=== PATIENT | female | born 1955 ===

== ENCOUNTER 2018-11-14 14:54 | Emergency (ER) | payer OTHER, BC ==
[2018-11-14 14:59] VITALS: BP 131/68; PULSE 78; RESP 18; TEMP 98.5; O2SAT 99
--- NOTE | 2018-11-14 15:10 | ED PDOC ---
HPI: Allergic Reaction Time Seen by Provider: 11/14/18 15:03 Chief Complaint (Nursing): Allergic Reaction Chief Complaint (Provider): Allergic Reaction History Per: Patient History/Exam Limitations: no limitations Onset/Duration Of Symptoms: Sudden Onset Current Symptoms Are (Timing): Still Present Context: Food Possible Cause: Food Associated Symptoms: Swelling, Itching, Redness Additional Complaint(s): 63 year old female with no significant medical history presents to the ED for evaluation of a facial swelling, itching and redness. Patient states just prior to arrival, she was eating strawberries with white and dark chocolate, which she has eaten in the past without problem, when she suddenly developed symptoms. She experienced sudden onset of right sided facial swelling with pruritis and redness to the area. Denies throat pain, fever, chills, numbness, tingling, and weakness. PMD: Dr. Hernando Ma Past Medical History Reviewed: Historical Data, Nursing Documentation, Vital Signs Vital Signs: Last Vital Signs Temp 98.5 F 11/14/18 14:57 Pulse 78 11/14/18 14:57 Resp 18 11/14/18 14:57 BP 131/68 11/14/18 14:57 Pulse Ox 99 11/14/18 14:57 Primary Care Provider: Hernando Hu - Medical History PMH: No Chronic Diseases - Surgical History Surgical History: No Surg Hx - Family History Family History: States: Unknown Family Hx - Social History Alcohol: None Drugs: Denies - Home Medications Home Medications: Ambulatory Orders Medication Instructions Recorded DiphenhydrAMINE [Benadryl] 50 mg PO Q6 PRN #10 cap 11/14/18 predniSONE [Prednisone] 40 mg PO DAILY #8 tab 11/14/18 - Allergies Allergies/Adverse Reactions: Allergies Allergy/AdvReac Type Severity Reaction Status Date / Time No Known Allergies Allergy Verified 11/14/18 14:56 Review of Systems ROS Statement: Except As Marked, All Systems Reviewed And Found Negative Constitutional: Negative for: Fever, Chills ENT: Negative for: Throat Pain Skin: Positive for: Other (right facial swelling with pruritis and redness) Neurological: Positive for: Other (tingling). Negative for: Weakness, Numbness Physical Exam - Reviewed Nursing Documentation Reviewed: Yes Vital Signs Reviewed: Yes - Physical Exam Appears: Positive for: No Acute Distress Head Exam: Positive for: ATRAUMATIC, NORMAL INSPECTION, NORMOCEPHALIC Skin: Positive for: Warm (minimal swelling to the right cheek with faint erythema; positive blanching; no break in skin integrity), Dry. Negative for: Normal Color Eye Exam: Positive for: EOMI, Normal appearance, PERRL ENT: Positive for: Normal ENT Inspection, TM Is/Are (non-bulging, non- erythematous). Negative for: Pharyngeal Erythema, Tonsillar Exudate, Tonsillar Swelling, Other (parotid swelling) Neck: Positive for: Normal, Painless ROM, Supple Cardiovascular/Chest: Positive for: Regular Rate, Rhythm. Negative for: Murmur Respiratory: Positive for: Normal Breath Sounds. Negative for: Respiratory Distress Extremity: Positive for: Normal ROM (x 4). Negative for: Deformity, Swelling Neurological/Psych: Positive for: Awake, Alert, Normal Tone, Oriented (x 3). Negative for: Motor/Sensory Deficits - ECG O2 Sat by Pulse Oximetry: 99 (RA) Pulse Ox Interpretation: Normal - Progress ED Course And Treament: Patient informed that this is likely allergic reaction but if swelling worsens she is to return to ED or follow up with PMD for evaluation of lymph node enlargement. Also, advised patient to return immediately if she develops shortness of breath or fever and to avoid strawberries and chocolate until allergy testing is completed. Scribe Attestation: Documented by Doris Burgess, acting as a scribe for Edilberto García PA-C Provider Scribe Attestation: All medical record entries made by the Scribe were at my direction and personally dictated by me. I have reviewed the chart and agree that the record accurately reflects my personal performance of the history, physical exam, medical decision making, and the department course for this patient. I have also personally directed, reviewed, and agree with the discharge instructions and disposition. Disposition - Clinical Impression Clinical Impression: Allergic reaction, Facial swelling - Patient ED Disposition Is Patient to be Admitted: No - Disposition Referrals: Hernando Hu MD [Medical Doctor] - Disposition: Routine/Home Disposition Time: 15:09 Condition: STABLE Additional Instructions: FOLLOW UP WITH YOUR DOCTOR FOR FURTHER EVALUATION RETURN TO ED IMMEDIATELY IF SYMPTOMS WORSEN JASS KELLEY, thank you for letting us take care of you today. Your provider was Jan Chan MD and you were treated for POSS ALLERGIC REACTION. The emergency medical care you received today was directed at your acute symptoms. If you were prescribed any medication, please fill it and take as directed. It may take several days for your symptoms to resolve. Return to the Emergency Department if your symptoms worsen, do not improve, or if you have any other problems. Please contact your doctor or call one of the physicians/clinics you have been referred to that are listed on the Patient Visit Information form that is included in your discharge packet. Bring any paperwork you were given at discharge with you along with any medications you are taking to your follow up visit. Our treatment cannot replace ongoing medical care by a primary care provider outside of the emergency department. Thank you for allowing the [facility] team to be part of your care today. If you had an X-Ray or CT scan: A Radiologist will review the ED reading if any change in treatment is needed we will contact you. If you had a blood, urine, or wound culture: It will take several days for the results, if any change in treatment is needed we will contact you. If you had an STI test: It will take 48 hours for the results. Please call after 1 week if you have not heard back. Prescriptions: DiphenhydrAMINE [Benadryl] 50 mg PO Q6 PRN #10 cap PRN Reason: ALLERGIC REACTION predniSONE [Prednisone] 40 mg PO DAILY #8 tab Instructions: Food Allergy Forms: [employer] (Czech) Print Language: NEPALESE
== END 2018-11-14 16:20 | disposition home or self-care (01) ==
LOC: H.ER 14:54
DX: T78.40XA Allergy, unspecified, initial encounter (principal)